=== PATIENT | female | born 1960 | race Asian ===

== ENCOUNTER 2020-09-08 15:29 | Emergency (ER) | payer MEDICAID ==
[~2020-09-08] VITALS: Ht 157.5 cm; Wt 72.7 kg
[2020-09-08] MEDS ORDERED: PANT-31 PO (15:39)
[2020-09-08] MEDS ORDERED: MULT-725 PO (15:39)
[2020-09-08] MEDS ORDERED: METF-960 PO (15:39)
[2020-09-08 15:51] LABS: GLUCOSE,POINT OF CARE 96 MG/DL (70-110)
[2020-09-08] MEDS ORDERED: KETOROLAC TROMETHAMINE 10 MG TABLET PO ONE (18:00)
[2020-09-08 18:58] VITALS: BP 155/82
== END 2020-09-08 18:59 | disposition home or self-care (01) ==
LOC: EMS 15:31
DX: S83.91XA Sprain of unspecified site of right knee, initial encounter (principal); E11.9 Type 2 diabetes mellitus without complications; Z79.84 Long term (current) use of oral hypoglycemic drugs; Z79.899 Other long term (current) drug therapy; X50.0XXA Overexertion from strenuous movement or load, initial encounter; Y93.89 Activity, other specified; Y92.89 Other specified places as the place of occurrence of the external cause; Y99.8 Other external cause status
CPT/HCPCS: 93971